=== PATIENT | female | born 1975 | race African-American/Black ===

== ENCOUNTER 2019-07-04 23:04 | Emergency (ER) | payer MEDICAID ==
[2019-07-05] MEDS ORDERED: ASPIRIN 81 MG TABLET, CHEWABLE PO ONE (00:05)
[2019-07-05 00:39] LABS: HEMATOCRIT 31.9 % (36.0-47.0); HEMOGLOBIN 10.6 g/dL (12.0-15.5); MEAN CORPUSCULAR HEMOGLOBIN 29.8 pg (27.0-33.4); MEAN CORPUSCULAR HGB CONC 33.2 g/dL (32.0-36.0); MEAN CORPUSCULAR VOLUME 90 fl (80-97); PLATELET COUNT 236 10^3/uL (150-450); RED BLOOD COUNT 3.54 10^6/uL (3.72-5.28); RED CELL DISTRIBUTION WIDTH 14.6 % (11.5-14.0); WHITE BLOOD COUNT 14.9 10^3/uL (4.0-10.5)
[2019-07-05 00:58] LABS: ALBUMIN 3.8 g/dL (3.5-5.0); ALKALINE PHOSPHATASE 83 U/L (38-126); ANION GAP 10 (5-19); ASPARTATE AMINO TRANSFERASE 23 U/L (14-36); BILIRUBIN,DIRECT 0.1 mg/dL (0.0-0.4); BILIRUBIN,TOTAL 0.4 mg/dL (0.2-1.3); BLOOD UREA NITROGEN 13 mg/dL (7-20); CALCIUM 8.9 mg/dL (8.4-10.2); CARBON DIOXIDE 27 mmol/L (22-30); CHLORIDE 100 mmol/L (98-107); CREATINE KINASE 54 U/L (30-135); GLUCOSE 90 mg/dL (75-110); POTASSIUM 4.1 mmol/L (3.6-5.0); TOTAL PROTEIN 7.9 g/dL (6.3-8.2)
[2019-07-05 00:59] LABS: ABSOLUTE LYMPHOCYTES# (MANUAL) 0.9 10^3/uL (0.5-4.7); ABSOLUTE MONOCYTES # (MANUAL) 0.3 10^3/uL (0.1-1.4); ANISOCYTOSIS SLIGHT; BASOPHILS % (MANUAL) 0 % (0-2); EOSINOPHILS % (MANUAL) 0 % (0-6); LYMPHOCYTES % (MANUAL) 6 % (13-45); MONOCYTES % (MANUAL) 2 % (3-13); SEGMENTED NEUTROPHILS % (MAN) 92 % (42-78); TOTAL CELLS COUNTED 100
[2019-07-05 01:00] LABS: PLATELET COMMENT ADEQUATE
[2019-07-05 01:11] LABS: CREATINE KINASE MB 0.23 ng/mL (<4.55)
[2019-07-05 01:12] LABS: TROPONIN I < 0.012 ng/mL
--- NOTE | 2019-07-05 01:21 | RADIOLOGY REPORT (SQ) ---
EXAM DESCRIPTION: XR CHEST 2 VIEWS COMPLETED DATE/TME: 07/05/2019 00:00 CLINICAL HISTORY: 43 years, Female, chest pain COMPARISON: None. NUMBER OF VIEWS: Two TECHNIQUE: Two views of the chest LIMITATIONS: None. FINDINGS: The lungs are clear. The heart is normal in size. There is no pneumothorax or pleural effusion. IMPRESSION: No acute cardiopulmonary abnormality copyright 2010 [employer]- All Rights Reserved
[2019-07-05] MEDS ORDERED: VANCOMYCIN HCL INJ 1000 MG VIAL IV ONE (04:06)
[2019-07-05] MEDS ORDERED: ACETAMINOPHEN 325 MG TABLET PO ONE (04:07)
--- NOTE | 2019-07-05 04:11 | ER Document Report ---
ED General - General Chief Complaint: Chest Pain Stated Complaint: REPORTS CHEST PALPITATIONS/SPIDER BITE Time Seen by Provider: 07/05/19 04:00 Primary Care Provider: LINDA SCHOFIELD PA-C [Primary Care Provider] - Follow up as needed Information source: Patient TRAVEL OUTSIDE OF THE [place] IN LAST 30 DAYS: No - HPI Patient complains to provider of: Heart racing and spider bite on the right leg with a fever Onset: This afternoon Onset/Duration: Gradual. denies: Sudden, Constant, Intermittent, Persistent, Waxing and waning, Better, Worse, Gone Quality of pain: Achy. denies: No pain, Burning, Cramping, Dull, Fullness, Pressure, Sharp, Stabbing, Throbbing, Other Severity: Mild Pain Level: 1 Associated symptoms: Fever. denies: None, Allergy/hay fever, Body/muscle aches, Chest pain, Chills, Nonproductive cough, Productive cough, Diarrhea, Drooling, Earache, Headache, Hoarseness, Hurts to breath, Leg swelling, Nausea, Vomiting, Rhinnorhea, Sinus pain/drainage, Shortness of breath, Slow to respond, Sore throat, Sweating, Weakness, Other Relieved by: denies: Denies, Supine, Sitting, Standing, Remaining still, Antacids, Food, Other Notes: She claims that earlier today she started feeling lightheaded dizzy heart that her heart was racing but then noticed that her right calf started hurting her and when she arrived the emergency department had 101 fever and redness in the lateral posterior calf. - Related Data Allergies/Adverse Reactions: No Known Allergies Allergy (Unverified 07/05/19 00:04) Home Medications: celexa. trazadone. nightmare med Past Medical History - Social History Smoking Status: Never Smoker Chew tobacco use (# tins/day): No Frequency of alcohol use: Social Drug Abuse: None Family History: None Patient has suicidal ideation: No Patient has homicidal ideation: No Review of Systems - Review of Systems Constitutional: Chills, Fever. denies: No symptoms reported, See HPI, Diaphoresis, Malaise, Weakness, Other, Weight gain, Weight loss, Recent illness EENT: denies: No symptoms reported, See HPI, Eye pain, Eye discharge, Blurred vision, Tearing, Double vision, Ear pain, Ear discharge, Nose pain, Nose congestion, Nose discharge, Sinus pressure, Sinus discharge, Throat pain, Difficulty swallowing, Throat swelling, Mouth pain, Mouth swelling, Dental problem, Vertigo, Other Cardiovascular: Palpitations, Heart racing. denies: No symptoms reported, See HPI, Chest pain, Orthopnea, Dyspnea, Syncope, Dizziness, Lightheaded, Edema, Other, Paroxysmal Nocturnal Dysp Respiratory: denies: No symptoms reported, See HPI, Cough, Hurts to breathe, Hemoptysis, Short of breath, Sputum, Stridor, Wheezing, Other Gastrointestinal: denies: No symptoms reported, See HPI, Abdomen distended, Abdominal pain, Diarrhea, Nausea, Vomiting, Constipation, Blood streaked bowels, Poor appetite, Poor fluid intake, Blood in vomit, Black stools, Rectal bleeding, Last bowel movement, Fecal incontinence, Other Genitourinary: denies: No symptoms reported, See HPI, Burning, Dysuria, Discharge, Frequency, Flank pain, Hematuria, Incontinence, Pain, Urgency, Retention, Other Musculoskeletal: Leg swelling. denies: No symptoms reported, See HPI, Back pain, Gout, Joint pain, Joint swelling, Muscle pain, Muscle stiffness, Neck pain, Deformity, Ankle swelling, Other Neurological/Psychological: denies: No symptoms reported, See HPI, Confusion, Dementia, Depression, Hallucinations, Anxiety, Homicidal ideation, Sensory change, Weakness, Gait changes, Loss of power, Paralysis, Seizure, Lost consciousness, Headaches, Speech impairment, Numbness, Suicidal ideation, Tingling, Tremor, Other Physical Exam - Vital signs Vitals: Temp Pulse Resp BP Pulse Ox 101.0 F H 109 H 18 167/80 H 98 07/04/19 23:56 07/04/19 23:56 07/04/19 23:56 07/04/19 23:56 07/04/19 23:56 Notes: PHYSICAL EXAMINATION: GENERAL: Well-appearing, well-nourished and in mild acute distress. Patient is febrile HEAD: Atraumatic, normocephalic. EYES: Pupils equal round and reactive to light, extraocular movements intact, sclera anicteric, conjunctiva are normal. ENT: nares patent, oropharynx clear without exudates. Moist mucous membranes. NECK: Normal range of motion, supple without lymphadenopathy LUNGS: Breath sounds clear to auscultation bilaterally and equal. No wheezes rales or rhonchi. HEART: Tachycardic rhythm without murmurs ABDOMEN: Soft, nontender, normoactive bowel sounds. No guarding, no rebound. No masses appreciated. EXTREMITIES: Normal range of motion, posterior calf shows a large erythematous area however only lymphangitis up to her knee. Can changes due to patient's eczema NEUROLOGICAL: No focal neurological deficits. Moves all extremities spontaneously and on command. PSYCH: Normal mood, normal affect. SKIN: Warm, Dry, normal turgor, no rashes or lesions noted. Course - Vital Signs Vital signs: Temp Pulse Resp BP Pulse Ox 99.1 F 109 H 22 H 140/65 H 98 07/05/19 06:28 07/04/19 23:56 07/05/19 06:28 07/05/19 06:28 07/05/19 04:00 - Laboratory Result Diagrams: 07/05/19 00:05 07/05/19 00:05 Laboratory results interpreted by me: 07/05/19 07/05/19 07/05/19 00:05 00:05 04:45 WBC 14.9 H RBC 3.54 L Hgb 10.6 L Hct 31.9 L RDW 14.6 H Seg Neuts % (Manual) 92 H Lymphocytes % (Manual) 6 L Monocytes % (Manual) 2 L Abs Neuts (Manual) 13.7 H Sodium 136.5 L Lactic Acid 0.6 L - Diagnostic Test Radiology reviewed: Image reviewed, Reports reviewed - EKG Interpretation by Ut EKG shows normal: Sinus rhythm Rate: Tachycardia When compared to previous EKG there are: Previous EKG unavailable - Transfer of Care Care transferred to following provider: Dr. Chong at 6 AM check these repeat troponin Notes: 07/05/19 05:55 Believe this patient has a cellulitis causing her heart racing fever etc. we have given her vancomycin here I will send her home with Bactrim and Keflex and some [place] I will encourage her to return in 24 hours for recheck here in the em ergency department after 8 AM tomorrow. Lesser second troponin is positive and she will be admitted. Discharge - Discharge Clinical Impression: Cellulitis of leg, right Condition: Good Disposition: HOME, SELF-CARE Additional Instructions: Please return in 24 hours to the emergency department for recheck after 8 AM tomorrow and with your private doctor on Sunday the Bactrim and Keflex as directed. Return if worse Prescriptions: Sulfamethoxazole/Trimethoprim [Bactrim Ds Tablet] 1 each PO BID #20 tablet Cephalexin Monohydrate [Keflex 500 mg Capsule] 500 mg PO Q6H #28 capsule Hydrocodone/Acetaminophen [[place] 5-325 Tablet] 1 each PO Q6 PRN #10 tablet PRN Reason: For Pain Scale 3-4 Referrals: LINDA SCHOFIELD PA-C [Primary Care Provider] - Follow up as needed
[2019-07-05 06:31] VITALS: BP 140/65
--- NOTE | 2019-07-06 00:25 | EKG REPORT ---
SEVERITY:- BORDERLINE ECG - SINUS TACHYCARDIA BORDERLINE T ABNORMALITIES, DIFFUSE LEADS : Confirmed by: Sophia De Guzman 06-Jul-2019 00:23:53
== END 2019-07-05 06:49 | disposition home or self-care (01) ==
LOC: ER 23:04
DX: L03.115 Cellulitis of right lower limb (principal); R50.9 Fever, unspecified; R42 Dizziness and giddiness; R00.2 Palpitations; R00.0 Tachycardia, unspecified; L30.9 Dermatitis, unspecified
CPT/HCPCS: 93005; 36415; 87040; 82553; 82550; 83735; 85025; 80053; 84484; 83605; 71046; 93010; J3490; J3370; 99285